=== PATIENT | female | born 1985 | race Caucasian/White ===

== ENCOUNTER → 2016-05-07 | Outpatient (CLI) | payer MEDICARE, MEDICAID ==
[~2016-05-07] MED LIST: ACET65TA; ALLE25CA; YAZ3TAB2
[2016-05-07 20:03] LABS: MEAN CORPUSCULAR HEMOGLOBIN 28.5 pg (27.0-33.0); MEAN CORPUSCULAR HGB CONC 32.3 g/dl (32.0-36.5); MEAN CORPUSCULAR VOLUME 88.2 fl (80.0-96.0); RED CELL DISTRIBUTION WIDTH 14.4 % (11.5-14.5); WHITE BLOOD COUNT 12.6 K/mm3 (4.0-10.0)
== END | disposition home or self-care (01) ==
LOC: M SMT 13:25
PROVIDERS: ATTEND Obstetrics & Gynecology
DX: Z34.82 Encounter for supervision of other normal pregnancy, second trimester (principal); Z36 Encounter for antenatal screening of mother; Z3A.00 Weeks of gestation of pregnancy not specified

== ENCOUNTER 2016-07-09 13:46 | Emergency (ER) | payer MEDICARE, MEDICAID ==
[~2016-07-09] VITALS: Ht 170.2 cm; Wt 136.1 kg
[2016-07-09] MEDS ORDERED: PRENCHW PO (14:03)
[2016-07-09 16:28] VITALS: BP 154/78
== END 2016-07-09 16:29 | disposition home or self-care (01) ==
LOC: M ED 15:40
DX: O26.893 Other specified pregnancy related conditions, third trimester (principal); O99.513 Diseases of the respiratory system complicating pregnancy, third trimester; J02.9 Acute pharyngitis, unspecified; Z3A.36 36 weeks gestation of pregnancy

== ENCOUNTER → 2016-07-12 | Outpatient (REF) | payer MEDICARE, MEDICAID ==
[~2016-07-12] MED LIST changes: +PRENCHW PO
== END ==
LOC: M LAB REF 16:47
PROVIDERS: ATTEND Advanced Practice Midwife
DX: Z34.83 Encounter for supervision of other normal pregnancy, third trimester (principal); Z36 Encounter for antenatal screening of mother; Z3A.00 Weeks of gestation of pregnancy not specified

== ENCOUNTER → 2016-07-15 | Outpatient (CLI) | payer MEDICARE, MEDICAID ==
--- NOTE | 2016-07-15 17:56 | REP ---
Obstetric sonography: History: Supervision of , third trimester study. Nonreassuring NST. Limited OB sonographic findings: Scanning demonstrates a viable single intrauterine gestation in a cephalic lie. motion is observed and heart rate is recorded at 160 beats per minute. An anterior grade 3 placenta is seen without evidence of previa or abruption. The umbilical cord is seen draping across the shoulders. Amniotic fluid index is normal at 13.5 cm. Biophysical profile score is 8 out of a possible 8. S/D ratio in the umbilical cord artery by Doppler is somewhat elevated at 3.25 (1.60 to 2.60). Impression: Somewhat elevated S/D ratio in the umbilical cord artery by Doppler. Biophysical profile score 8 out of a possible 8. Signed by Raul Ayon MD 07/15/2016 07:21 P
== END ==
LOC: M LAB 16:35
PROVIDERS: ATTEND Advanced Practice Midwife
DX: Z34.83 Encounter for supervision of other normal pregnancy, third trimester (principal); Z36 Encounter for antenatal screening of mother

== ENCOUNTER 2016-07-17 23:06 | Outpatient (CLI) | payer MEDICARE, MEDICAID ==
[~2016-07-17] VITALS: Ht 170.2 cm; Wt 139.0 kg
[2016-07-17 23:30] VITALS: BP 131/61
== END 2016-07-18 01:23 | disposition home or self-care (01) ==
LOC: M LDO 23:06
PROVIDERS: ATTEND Specialist
DX: O47.1 False labor at or after 37 completed weeks of gestation (principal); Z3A.37 37 weeks gestation of pregnancy

== ENCOUNTER 2016-07-30 12:59 | Inpatient (IN) | payer MEDICARE, MEDICAID ==
[2016-07-30] VITALS (7 sets, daily range): BP systolic 105–139; BP diastolic 59–74
[~2016-07-30] VITALS: Ht 170.2 cm; Wt 139.0 kg
[2016-07-30] MEDS ORDERED: ANTA500C PO (13:06)
[2016-07-30] MEDS ORDERED: LACTATED RINGER'S 1000 ML IV STA (13:46)
[2016-07-30] MEDS ORDERED: miSOPROStol 25 MCG 1/4 TAB (S0191) PV ONE ×2 (14:00→19:45)
[2016-07-30 15:35] LABS: MEAN CORPUSCULAR HEMOGLOBIN 29.3 pg (27.0-33.0); MEAN CORPUSCULAR VOLUME 86.1 fl (80.0-96.0); RED CELL DISTRIBUTION WIDTH 15.1 % (11.5-14.5)
[2016-07-30] MEDS: LR 1,000 ML IV SCH (16:19)
[2016-07-31] VITALS (32 sets, daily range): BP systolic 109–166; BP diastolic 51–89
[2016-07-31] MEDS ORDERED: OXYTOCIN DRIP 30 UNITS in APPROPRIATE DILUENT 1 EA IV SCH (00:30)
[2016-07-31] MEDS ORDERED: OXYTOCIN 30 UNITS IN 0.9% NaCl 500ML IV BAG (J2590) As Ordered ONE ×2 (00:32→18:21)
[2016-07-31] MEDS: LR 1,000 ML IV SCH ×2 (07:31→15:36)
[2016-07-31] MEDS ORDERED: PROMETHAZINE INJ 25 MG/ML VIAL (J2550) IV ONE (10:45)
[2016-07-31] MEDS ORDERED: BUTORPHANOL 2 MG/ML INJ (J0595) IV ONE (10:45)
[2016-07-31] MEDS ORDERED: miSOPROStol 200 MCG TAB (S0191) As Ordered ONE (18:22)
[2016-07-31] MEDS ORDERED: LIDOCAINE 1% MDV INJ 50 ML VIAL As Ordered ONE (18:23)
[2016-07-31] MEDS ORDERED: METHYLERGONOVINE MALEATE 0.2 MG/ML VIAL (J2210) IM ONE (18:45)
[2016-07-31] MEDS ORDERED: OXYTOCIN DRIP 30 UNITS in APPROPRIATE DILUENT 1 EA IV ONE (18:45)
[2016-07-31] MEDS ORDERED: ONDANSETRON 4MG/2ML VIAL (J2405) IV PRN (18:45)
[2016-07-31] MEDS ORDERED: DIBUCAINE 1% OINTMENT 30GM TOP PRN (18:45)
[2016-07-31] MEDS ORDERED: RHOGAM 300 MCG (1500 IU) INJ (J2790) IM SCH (18:45)
[2016-07-31] MEDS ORDERED: MEASLES,MUMPS,RUBELLA VACCINE INJ (MMR-II) (90707) SC SCH (18:45)
[2016-07-31] MEDS ORDERED: miSOPROStol 200 MCG TAB (S0191) PR ONE (18:45)
[2016-07-31] MEDS ORDERED: ACETAMINOPHEN 500 MG TAB PO PRN (18:45)
[2016-07-31] MEDS ORDERED: METHYLERGONOVINE MALEATE 0.2 MG TAB PO PRN (18:45)
[2016-07-31] MEDS ORDERED: LIDOCAINE 1% MDV INJ 50 ML VIAL INFIL ONE (18:45)
--- NOTE | 2016-07-31 21:16 | DN ---
DATE OF DELIVERY: 07/31/2016 PREDELIVERY DIAGNOSIS: Term . Labor. DELIVERY DIAGNOSIS: Delivered. PROCEDURE: Spontaneous vaginal delivery. WAX POURER: Daniel Stewart MD ANESTHESIA: None. ESTIMATED BLOOD LOSS: 600 mL. FINDINGS: 8 pound 7 ounce female infant, 8 and 9. DELIVERY SUMMARY: After a short second stage, the patient had spontaneous delivery of an 8 pound 7 ounce female with no delivery of anesthesia. There was no nuchal cord. The shoulders delivered with ease. The cried spontaneous and was handed to the mother. The cord was doubly clamped and cut. The placenta delivered spontaneously and appeared to be intact. There was excessive vaginal bleeding after delivery of the placenta. The patient received IV pitocin immediately. She also subsequently received Methalgen 0.2 mg intramuscular (IM) and Cytotec 800 mcg per rectum. The bleeding eventually subsided. Second degree perineal laceration was repaired under local anesthesia with #2-0 chromic in the usual fashion. Sponge and needle counts were correct.
[2016-07-31] MEDS: IBUPROFEN 800 MG TAB PO PRN (21:22)
[2016-07-31] MEDS: DOCUSATE SODIUM 100 MG CAP PO PRN (21:22)
[2016-08-01 06:00] VITALS: BP 126/58
[2016-08-01] MEDS: PRENATAL VITAMIN TAB PO SCH (09:00)
[2016-08-01] MEDS: IBUPROFEN 800 MG TAB PO PRN ×2 (09:01→20:46)
[2016-08-01 18:03] VITALS: BP 124/60
[2016-08-01] MEDS: DOCUSATE SODIUM 100 MG CAP PO PRN (20:46)
[2016-08-02 05:36] VITALS: BP 140/67
[2016-08-02] MEDS ORDERED: ACET50TA PO (07:34)
[2016-08-02] MEDS ORDERED: IBUP-1114 PO (07:34)
[2016-08-02] MEDS ORDERED: PRENTAB9 PO (07:34)
[2016-08-02] MEDS: PRENATAL VITAMIN TAB PO SCH (07:46)
== END 2016-08-02 12:45 | disposition home or self-care (01) | DRG 774 ==
LOC: M LDI 12:59 → M OBS 07-31 20:12
PROVIDERS: ADMIT Obstetrics & Gynecology; ATTEND Obstetrics & Gynecology
PROC: 3E030VJ Introduction of Other Hormone into Peripheral Vein, Open Approach (ICD-10-PCS; 2016-07-30)
PROC: 10E0XZZ Delivery of Products of Conception, External Approach (ICD-10-PCS; principal; 2016-07-31)
PROC: 0KQM0ZZ Repair Perineum Muscle, Open Approach (ICD-10-PCS; 2016-07-31)
DX: O99.214 Obesity complicating childbirth (principal); O72.1 Other immediate postpartum hemorrhage; Z37.0 Single live birth; E66.9 Obesity, unspecified; Z88.2 Allergy status to sulfonamides; Z88.8 Allergy status to other drugs, medicaments and biological substances; Z87.891 Personal history of nicotine dependence; Z3A.39 39 weeks gestation of pregnancy; O70.1 Second degree perineal laceration during delivery; Z79.899 Other long term (current) drug therapy

== ENCOUNTER 2017-01-17 20:33 | Emergency (ER) | payer MEDICAID, MEDICARE ==
[~2017-01-17] VITALS: Ht 170.2 cm; Wt 128.7 kg
[~2017-01-17 20:33] MED LIST changes: +ACET50TA PO; +ANTA500C PO; +IBUP-1114 PO; +PRENTAB9 PO
[2017-01-17 20:37] VITALS: BP 146/80
[2017-01-17] MEDS ORDERED: NUVAMIS2 VA (20:43)
[2017-01-17] MEDS ORDERED: EXCETAB80 PO (20:43)
[2017-01-17] MEDS ORDERED: KETOROLAC 30 MG/ML VIAL (J1885) IV ONE (22:15)
[2017-01-17] MEDS ORDERED: ONDANSETRON 4MG/2ML VIAL (J2405) IV ONE (22:15)
[2017-01-17] MEDS ORDERED: diphenhydrAMINE INJ 50MG/ML VIAL (J1200) IV ONE (22:15)
[2017-01-17] MEDS ORDERED: NS 1,000 ML IV ONE (22:45)
[2017-01-17 22:51] LABS: MEAN CORPUSCULAR HGB CONC 33.3 g/dl (32.0-36.5); RED CELL DISTRIBUTION WIDTH 15.5 % (11.5-14.5); WHITE BLOOD COUNT 9.3 K/mm3 (4.0-10.0)
[2017-01-17 23:11] LABS: ALBUMIN/GLOBULIN RATIO 0.81 (1.00-1.93); ALKALINE PHOSPHATASE 106 U/L (45-117); ALT/SGPT 17 U/L (12-78); ANION GAP 5 MEQ/L (8-16); AST/SGOT 8 U/L (15-37); BILIRUBIN,DIRECT < 0.1 MG/DL (0.0-0.2); BILIRUBIN,TOTAL 0.2 MG/DL (0.2-1.0); BLOOD UREA NITROGEN 10 MG/DL (7-18); CALCIUM LEVEL 8.9 MG/DL (8.5-10.1); CARBON DIOXIDE LEVEL 31 MEQ/L (21-32); CHLORIDE LEVEL 105 MEQ/L (98-107); GLOMERULAR FILTRATION RATE > 60.0 (>60); GLUCOSE, FASTING 114 MG/DL (70-105); MAGNESIUM LEVEL 1.8 MG/DL (1.8-2.4); POTASSIUM SERUM 4.4 MEQ/L (3.5-5.1); SODIUM LEVEL 141 MEQ/L (136-145); TOTAL PROTEIN 6.7 GM/DL (6.4-8.2)
[2017-01-17] MEDS ORDERED: AUGM875T28 PO (23:36)
[2017-01-17] MEDS ORDERED: ZOFR4TAB3 PO (23:37)
[2017-01-17] MEDS ORDERED: SUMA50TA2 PO (23:38)
== END 2017-01-17 23:47 | disposition home or self-care (01) ==
LOC: M ED 20:33
DX: R51 Headache (principal); J01.10 Acute frontal sinusitis, unspecified; F41.9 Anxiety disorder, unspecified; F32.9 Major depressive disorder, single episode, unspecified; Z87.891 Personal history of nicotine dependence; Z88.2 Allergy status to sulfonamides; Z88.7 Allergy status to serum and vaccine
CPT/HCPCS: 80048; 80076; 83735; 85027; 87880; 96361; 96374; 96375; 99283; J1200; J1885; J2405